=== PATIENT | female | born 1990 | race Caucasian/White ===

== ENCOUNTER 2018-01-20 14:00 | Emergency (ER) | payer BC ==
[2018-01-20] MEDS ORDERED: Alum Hydrox/Mag Hydrox/Simeth 30 ML, Lidocaine 2% 15 ML PO ONE ×2 (14:42)
[2018-01-20] MEDS ORDERED: Aluminum Hydroxide/Magnesium Hydroxide/Simethicone Susp 30 ML Cup ONE (14:50)
--- NOTE | 2018-01-20 14:52 | EDM.PDOC ---
ED HPI GENERAL MEDICAL PROBLEM - General Chief Complaint: Abdominal Pain Stated Complaint: ABDOMIANL PAIN Time Seen by Provider: 01/20/18 14:29 Source of Information: Reports: Patient History Limitations: Reports: No Limitations - History of Present Illness INITIAL COMMENTS - FREE TEXT/NARRATIVE: Patient is a 27-year-old female who is approximately 5 weeks who presents ED complaining of epigastric and right upper quadrant abdominal pain. States this came on at about 12:30 today after eating lunch. Patient had eaten turkey with guacamole. She's had similar episodes over the past 7 months. It is described as a sharp crampy sensation worsened with eating. Nothing specific decreases the discomfort. Pain does radiate into her back. Currently rated a 7 out of 10. This waxes and wanes with intensity. She's been 3 times total. She's had 2 miscarriages in the past. Last menstrual cycle was December 16. She is approximately 5 weeks . There is no abnormal vaginal bleeding. No abnormal vaginal discharge. Denies any constipation or diarrhea. She is not nauseated and has not had any episodes of emesis as we speak. She was seen by her PCP earlier today with lab work obtained. Just recently was on Keflex for her bladder infection. She denies any chest pain, shortness of breath, fever, diarrhea, increased flatulence, blood in her stool, dysuria, ingestion of bad or questionable food, recent sick exposures, or any additional complaints. middle upper abdomen/upper back Pain Score (Numeric/FACES): 7 - Related Data Allergies Allergy/AdvReac Type Severity Reaction Status Date / Time Sulfa (Sulfonamide Allergy Vomiting Verified 01/20/18 14:17 Antibiotics) Home Meds: Home Meds Acetaminophen/oxyCODONE [Percocet 325-5 MG] 1 each PO Q6HR PRN #12 tab 01/20/18 [Rx] Ascorbic Acid/Multivit-Min [Emergen-C 1,000 mg Packet] 1,000 mg PO DAILY [History] Cranberry 400 mg PO DAILY 01/20/18 [History] Docosahexanoic Acid [ Dha] 200 mg PO DAILY 01/20/18 [History] L.acidoph,Paracasei, B.lactis [Probiotic] 1 each PO DAILY 01/20/18 [History] Ondansetron [Zofran ODT] 4 mg PO Q6H PRN #12 tab.dis 01/20/18 [Rx] Past Medical History - Past Health History Medical/Surgical History: Denies Medical/Surgical History Other HEENT History: wisdom teeth 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 Denies: Black Stool, Bloody Stool, Constipation, Diarrhea, Decreased Appetite, Difficulty Swallowing , Distension, Flatus, Hematemesis, Hematochezia, Melena, Nausea, Vomiting : Reports: No Symptoms Musculoskeletal: Reports: Back Pain (midline thoracic back pain) Skin: Reports: No Symptoms ED EXAM, GI/ABD - Physical Exam Exam: See Below Exam Limited By: No Limitations General Appearance: Alert, WD/WN, Mild Distress Ears: Hearing Grossly Normal Nose: Normal Inspection Throat/Mouth: Normal Voice, No Airway Compromise Neck: Normal Inspection, Supple Respiratory/Chest: No Respiratory Distress, Lungs Clear, Normal Breath Sounds, No Accessory Muscle Use, Chest Non-Tender Cardiovascular: Normal Peripheral Pulses, Regular Rate, Rhythm, No Murmur GI/Abdominal Exam: Normal Bowel Sounds, Soft, No Organomegaly, No Distention, Tender (epigastric is the Point of maximal pain. RUQ pain present, mild in nature. ) Back Exam: Normal Inspection. No: CVA Tenderness (L), CVA Tenderness (R) Neurological: Alert, Oriented, CN II-XII Intact, Normal Cognition, No Motor/ Sensory Deficits Psychiatric: Normal Affect, Normal Mood Skin Exam: Warm, Dry, Intact, Normal Color, No Rash Course - Vital Signs Last Recorded V/S: Last Vital Signs Temp 97 F 01/20/18 14:12 Pulse 117 H 01/20/18 14:12 Resp 18 01/20/18 14:12 BP 136/90 01/20/18 14:12 Pulse Ox 100 01/20/18 14:12 - Orders/Labs/Meds Orders: Active Orders 24 hr Category Date Time Status Peripheral IV Care [RC] . DIRECTED Care 01/20/18 16:38 Active Peripheral IV Insertion Adult [OM.PC] Routine Oth 01/20/18 16:37 Ordered Labs: Laboratory Tests 01/20/18 Range/Units 15:08 C-Reactive Protein 0.2 (<1.0) mg/dL Lipase 123 (73-393) U/L HCG, Quant 480.0 mIU/mL Meds: Medications Discontinued Medications Generic Name Dose Route Start Last Admin Trade Name Freq PRN Reason Stop Dose Admin Al Hydroxide/Mg Hydroxide Confirm 01/20/18 14:50 01/20/18 14:55 Mag-Al Plus Administered 01/20/18 14:51 Not Given Dose 30 ml .ROUTE .STK-MED ONE Al Hydroxide/Mg Hydroxide 30 0 ml 01/20/18 14:42 01/20/18 14:54 ml/ Lidocaine HCl 15 ml PO 01/20/18 14:43 45 ml ONETIME ONE Administration Hydromorphone HCl 0.5 mg 01/20/18 16:37 01/20/18 17:02 Dilaudid IVPUSH 01/20/18 16:38 0.5 mg ONETIME ONE Administration Sodium Chloride 1,000 mls @ 150 mls/hr 01/20/18 16:45 01/20/18 17:01 Normal Saline IV 150 mls/hr ASDIRECTED KAYLEIGH Administration Ondansetron HCl 4 mg 01/20/18 16:37 01/20/18 17:01 Zofran IVPUSH 01/20/18 16:38 4 mg ONETIME ONE Administration Ranitidine HCl 150 mg 01/20/18 16:25 01/20/18 17:20 Zantac PO 01/20/18 16:26 Not Given ONETIME ONE Sodium Chloride 10 ml 01/20/18 16:37 01/20/18 17:01 Saline Flush FLUSH 10 ml ASDIRECTED PRN Administration Keep Vein Open - Re-Assessments/Exams Free Text/Narrative Re-Assessment/Exam: 01/20/18 14:40 Attempting to obtain medical records/lab results from [facility] obtained earlier today. In the meantime will order GI cocktail. Suspect this is gallbladder related thus if no relief IV will be obtained with administration of narcotic pain meds and IVF's. Patient last ate at 1230 with onset of pain shortly after. Will have to wait a few hrs prior to obtaining Ultrasound. She has a ultrasound scheduled for tomorrow morning at 9:30. 01/20/2018 Labs obtained at [facility] today included: CBC and C14. CBC was essentially normal. Chemistry panel was essentially normal as well. Will obtain lipase, UA, and hCG quantitative. 01/20/18 15:22 Reassessment, patient states all her discomfort is gone after the GI cocktail. Will await for labs to comeback. Patient will have ultrasound completed tomorrow as scheduled. She refuses to wait and have this completed today. CRP 0.2. Lipase 123. HCG quantitative 480. This consistent with between 1-4 weeks in gestation. Per nursing staff patient complaining of some epigastric discomfort similar to discomfort she was experiencing on admission. I will order Zantac 150 mg by mouth per verbal order. 163 I reassessed the patient. She is wishin to have the ultraound completed in the E.D. I will treat her pain with dilaudid 0.5mg IVp, zofran 4mg IVP, and NS 150mls/hr. Patient will have to wait approximately 2 more hours for ultrasound to be completed. Ultrasound has been ordered. Ultrasound impression: Small gallstone within the gallbladder. No gallbladder wall thickening or biliary duct dilatation. Possibly fatty infiltration within the liver. No additional abnormalities identified a right upper quadrant abdominal ultrasound. 01/20/18 181 Reassessment,Patient has no epigastric or right upper quadrant abdominal pain since being administered the Dilaudid IVP. Discussed with the patient most likely this is related to biliary colic. Will speak with general surgeon on-call. [address] Chatman sludge filtration operator General Surgeon. He will see the patient in the E.D. and discuss options. 01/20/[address] Chatman has spoken with the patient. Will attempt to hold off in performing and surgery until the 2nd trimester. Suggested pain management consisting of short course of narcotics with diet modification in hopes this will stop reoccurring symptoms. Patient agrees with plan. The patient remained hemodynamically stable while under my care in the E.D. I discussed the concerning symptoms for which to return to the E.D. with the patient/family. The patient/family verbalized understanding. All questions were answered. Departure - Departure Time of Disposition: 16:01 Disposition: Home, Self-Care 01 Condition: Good Clinical Impression: Biliary colic, Choledocholithiasis - Discharge Information Prescriptions: Acetaminophen/oxyCODONE [Percocet 325-5 MG] 1 each PO Q6HR PRN #12 tab PRN Reason: Pain (Severe 7-10) Ondansetron [Zofran ODT] 4 mg PO Q6H PRN #12 tab.dis PRN Reason: Nausea/Vomiting Instructions: Gastritis, Adult, [id number], Cholelithiasis, [id number], Pain Medicine Instructions, [id number] Referrals: PCP,None [Primary Care Provider] - Forms: ED Department Discharge Additional Instructions: As discussed will try to refrain from surgery if able until the 2nd trimester. Thus will utilize percocet 1 tab every 6 hrs for severe pain. Utilize zofran 1 tab wvery 6 hrs for nausea. Stick with the diet provided to reduce gallbladder attacks. If at any time you experience worsening pain, fever, chills, n/v, please return to the E.D. for reevaluation. Followup with PCP in the next 3 to 5 days for reevaluation as needed. - My Orders Last 24 Hours: My Active Orders 01/20/18 16:37 Peripheral IV Insertion Adult [OM.PC] Routine 01/20/18 16:38 Peripheral IV Care [RC] . DIRECTED - Assessment/Plan Last 24 Hours: My Active Orders 01/20/18 16:37 Peripheral IV Insertion Adult [OM.PC] Routine 01/20/18 16:38 Peripheral IV Care [RC] . DIRECTED
[2018-01-20] MEDS ORDERED: Ranitidine 15 MG/ML Syrup 10 ML UD Cup PO ONE (16:25)
[2018-01-20] MEDS ORDERED: Ondansetron 4 MG/2 ML SDV IVPUSH ONE (16:37)
[2018-01-20] MEDS ORDERED: Sodium Chloride 0.9% 10 ML Syringe FLUSH PRN (16:37)
[2018-01-20] MEDS ORDERED: HYDROmorphone 0.5 MG/0.5 ML SYRINGE IVPUSH ONE (16:37)
[2018-01-20] MEDS ORDERED: Sodium Chloride 0.9% 1,000 ML IV SCH (16:45)
--- NOTE | 2018-01-20 17:58 | US ---
Limited abdominal ultrasound: Multiple real-time images of the upper right abdomen were obtained. Comparison: Previous right upper quadrant abdominal ultrasound of 07/19/11 is available Small echogenic structure is noted within the gallbladder most likely due to a small gallstone. No gallbladder wall thickening or biliary duct dilatation is seen. Liver shows no focal parenchymal abnormality but appears to be slightly echogenic. Right kidney shows no hydronephrosis or mass has length of around 10.0 cm. Pancreas is poorly seen due to bowel gas. No abnormality is seen within the visualized portions of the pancreas. Impression: 1. Small gallstone within the gallbladder. No gallbladder wall thickening or biliary duct dilatation. 2. Possible fatty infiltration within the liver. 3. No additional abnormality is identified on right upper quadrant abdominal ultrasound. Diagnostic code #3
--- NOTE | 2018-01-20 19:43 | PCM.CONSN ---
- General Info Date of Service: 01/20/18 Admission Dx/Problem (Free Text): biliary colic Subjective Update: 27 yo female, currently 5 weeks EGA, presents with intermittent epigastric abdominal pain that radiates to her RIGHT side and wraps around her back. Pain episodes started a few days ago, each episode occurring a few hours after meals, and lasting 3-6 hours, resolving spontaneously. This episode lasted about 3 hours, occurring shortly after eating a [employer] sandwich with avocado. She came to the ER and received a GI cocktail with relief of her symptoms, but her symptoms returned prior to leaving the ER. She then received Dilaudid. Currently, she rates pain 0/10. Denies nausea/emesis. Denies diarrhea/constipation. No yellowing of eyes or skin. No acholic stools or tea-colored urine. No fevers/chills. - Patient Data Vitals - Most Recent: Last Vital Signs Temp 36.1 C 01/20/18 14:12 Pulse 117 H 01/20/18 14:12 Resp 18 01/20/18 14:12 BP 136/90 01/20/18 14:12 Pulse Ox 100 01/20/18 14:12 Weight - Most Recent: 83.007 kg Lab Results Last 24 Hours: Laboratory Results - last 24 hr 01/20/18 Range/Units 15:08 C-Reactive Protein 0.2 (<1.0) mg/dL Lipase 123 (73-393) U/L HCG, Quant 480.0 mIU/mL Med Orders - Current: Current Medications Sodium Chloride (Normal Saline) 1,000 mls @ 150 mls/hr IV ASDIRECTED KAYLEIGH Last Admin: 01/20/18 17:01 Dose: 150 mls/hr Sodium Chloride (Saline Flush) 10 ml FLUSH ASDIRECTED PRN PRN Reason: Keep Vein Open Last Admin: 01/20/18 17:01 Dose: 10 ml Discontinued Medications Al Hydroxide/Mg Hydroxide (Mag-Al Plus) Confirm Administered Dose 30 ml .ROUTE .STK-MED ONE Stop: 01/20/18 14:51 Last Admin: 01/20/18 14:55 Dose: Not Given Al Hydroxide/Mg Hydroxide 30 (ml/ Lidocaine HCl 15 ml) 0 ml PO ONETIME ONE Stop: 01/20/18 14:43 Last Admin: 01/20/18 14:54 Dose: 45 ml Hydromorphone HCl (Dilaudid) 0.5 mg IVPUSH ONETIME ONE Stop: 01/20/18 16:38 Last Admin: 01/20/18 17:02 Dose: 0.5 mg Ondansetron HCl (Zofran) 4 mg IVPUSH ONETIME ONE Stop: 01/20/18 16:38 Last Admin: 01/20/18 17:01 Dose: 4 mg Ranitidine HCl (Zantac) 150 mg PO ONETIME ONE Stop: 01/20/18 16:26 Last Admin: 01/20/18 17:20 Dose: Not Given - Exam General: Alert, Oriented, Cooperative HEENT: No: Scleral Icterus Neck: Supple. No: Lymphadenopathy Lungs: Clear to Auscultation, Normal Respiratory Effort Cardiovascular: Regular Rate, Regular Rhythm, No Murmurs GI/Abdominal Exam: Soft, Non-Tender, No Distention Extremities: Normal Inspection Skin: Warm, Dry, Intact Psy/Mental Status: Alert, Normal Affect, Normal Mood Consult PN Assessment/Plan Procedures: Procedures TRANSVAGINAL US OBSTETRIC (10/14/17)
--- NOTE | 2018-01-20 19:47 | PCM.CONS ---
H&P History of Present Illness - General Date of Service: 01/20/18 Admit Problem/Dx: biliary colic Source of Information: Patient History Limitations: Reports: No Limitations - History of Present Illness Initial Comments - Free Text/Narative: 27 yo female, currently 5 weeks EGA, presents with intermittent epigastric abdominal pain that radiates to her RIGHT side and wraps around her back. Pain episodes started a few days ago, each episode occurring a few hours after meals, and lasting 3-6 hours, resolving spontaneously. This episode lasted about 3 hours, occurring shortly after eating a [employer] sandwich with avocado. She came to the ER and received a GI cocktail with relief of her symptoms, but her symptoms returned prior to leaving the ER. She then received Dilaudid. Currently, she rates pain 0/10. Denies nausea/emesis. Denies diarrhea/constipation. No yellowing of eyes or skin. No acholic stools or tea-colored urine. No fevers/chills. middle upper abdomen/upper back Pain Score (Numeric/FACES): 7 - Related Data Allergies/Adverse Reactions: Allergies Allergy/AdvReac Type Severity Reaction Status Date / Time Sulfa (Sulfonamide Allergy Vomiting Verified 01/20/18 14:17 Antibiotics) Home Medications: Home Meds Acetaminophen/oxyCODONE [Percocet 325-5 MG] 1 each PO Q6HR PRN #12 tab 01/20/18 [Rx] Ascorbic Acid/Multivit-Min [Emergen-C 1,000 mg Packet] 1,000 mg PO DAILY [History] Cranberry 400 mg PO DAILY 01/20/18 [History] Docosahexanoic Acid [ Dha] 200 mg PO DAILY 01/20/18 [History] L.acidoph,Paracasei, B.lactis [Probiotic] 1 each PO DAILY 01/20/18 [History] Ondansetron [Zofran ODT] 4 mg PO Q6H PRN #12 tab.dis 01/20/18 [Rx] Past Medical History - Past Health History Medical/Surgical History: Denies Medical/Surgical History Other HEENT History: wisdom teeth 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 Exam - Exam Exam: See Below - Vital Signs Vital Signs: Last Vital Signs Temp 36.1 C 01/20/18 14:12 Pulse 117 H 01/20/18 14:12 Resp 18 01/20/18 14:12 BP 136/90 01/20/18 14:12 Pulse Ox 100 01/20/18 14:12 Weight: 83.007 kg - Exam General: Alert, Oriented HEENT: Conjunctiva Clear. No: Scleral Icterus Neck: Supple. No: Lymphadenopathy Lungs: Clear to Auscultation, Normal Respiratory Effort Cardiovascular: Regular Rate, Regular Rhythm, Normal S1, Normal S2. No: Systolic Murmur GI/Abdominal Exam: Soft, Non-Tender, No Distention Extremities: Normal Inspection Skin: Warm, Dry, Intact Neuro Extensive - Mental Status: Alert, Normal Mood/Affect, Normal Cognition, Memory Intact Psychiatric: Alert, Normal Affect, Normal Mood - Patient Data Lab Results Last 24 hrs: Laboratory Results - last 24 hr 01/20/18 Range/Units 15:08 C-Reactive Protein 0.2 (<1.0) mg/dL Lipase 123 (73-393) U/L HCG, Quant 480.0 mIU/mL Consult PN Assessment/Plan Procedures: Procedures TRANSVAGINAL US OBSTETRIC (10/14/17) (1) Biliary colic SNOMED Code(s): 39399395 Code(s): K80.50 - CALCULUS OF BILE DUCT W/O CHOLANGITIS OR CHOLECYST W/O OBST Current Visit: Yes Problem List Initiated/Reviewed/Updated: Yes Plan: 27 yo female, in her first trimester of (approx 5 weeks EGA), with biliary colic. - Patient educated on the diagnosis, discussed treatment options, and how her relates to treatment. - If symptoms can be controlled, will try to avoid surgery during the first trimester (period of organogenesis). Recommend avoiding surgery until the 2nd trimester, unless symptoms become progressively worse and/or inhibits her ability to take in calories. - If she develops acute cholecystitis, she may need urgent surgical intervention. - May try dietary modifications to avoid future attacks. - Pain medication can be used in the short-term. - Return precautions were given. - Patient safe for discharge home from the ER. Plan of care discussed with ER staff. Nilson Root M.D., F.A.C.S. General Surgery Pager: [phone] Requesting Provider: Lewis Hoover Date Consult Requested: 01/20/18 Reason for Consult: biliary colic in woman Patient History Reviewed: Yes Time Spent (in minutes): 40
== END 2018-01-20 20:02 | disposition home or self-care (01) ==
LOC: JD.ED 14:00
DX: O99.611 Diseases of the digestive system complicating pregnancy, first trimester (principal); K80.50 Calculus of bile duct without cholangitis or cholecystitis without obstruction; Z3A.01 Less than 8 weeks gestation of pregnancy; Z88.2 Allergy status to sulfonamides
CPT/HCPCS: 36415; 76705; 83690; 84702; 86140; 96361; 96374; 96375; 99285; A9270; J1170; J2405; J7040; J7050; 99284

== ENCOUNTER 2022-11-12 08:29 | Observation (INO) | payer BC ==
[2022-11-12] MEDS ORDERED: Ondansetron 4 MG/2 ML SDV IVPUSH PRN (09:06)
[2022-11-12] MEDS ORDERED: Acetaminophen/HYDROcodone 325-10 MG Tab PO PRN (09:20)
[2022-11-12] MEDS ORDERED: Ondansetron 4 MG Tab.DIS PO PRN (09:21)
[2022-11-12] MEDS ORDERED: Lactated Ringers 1,000 ML IV ONE ×2 (09:22→11:47)
[2022-11-12] MEDS ORDERED: Sodium Chloride 0.9% 10 ML Syringe FLUSH PRN (09:23)
[2022-11-12 11:30] LABS: APPEARANCE,URINE CLEAR (Clear); BILIRUBIN,URINE NEGATIVE (Negative); COLOR,URINE YELLOW (Yellow); GLUCOSE,URINE NEGATIVE (Negative); KETONES,URINE 2+ (Negative); LEUKOCYTE ESTERASE,URINE NEGATIVE (Negative); NITRITE,URINE POSITIVE (Negative); OCCULT BLOOD,URINE TRACE-INTACT (Negative); PROTEIN,URINE 1+ (Negative); UROBILINOGEN,URINE 0.2 (0.2-1.0)
[2022-11-12 11:40] LABS: BACTERIA,URINE FEW /hpf (FEW); EPITHELIAL CELLS,URINE 0-5 /hpf (0-5); MUCUS,URINE MODERATE /hpf (FEW)
[2022-11-12] MEDS ORDERED: cefTRIAXone 1 GM in Sodium Chloride 0.9% 100 ML IV ONE (12:00)
[2022-11-12 12:43] LABS: BASOPHILS ABSOLUTE AUTO 0.01 K/mm3 (0.01-0.08); BASOPHILS PERCENT AUTO 0.1 % (0.1-1.2); EOSINOPHILS ABSOLUTE AUTO 0.01 K/mm3 (0.04-0.36); EOSINOPHILS PERCENT AUTO 0.1 (0.7-5.8); HEMOGLOBIN 13.1 gm/dl (11.2-15.7); IMMATURE GRAN ABSOLUTE AUTO 0.09 K/mm3 (0.00-0.10); IMMATURE GRAN PERCENT AUTO 0.5 % (<=1.0); LYMPHOCYTES ABSOLUTE AUTO 0.44 K/mm3 (1.18-3.74); LYMPHOCYTES PERCENT AUTO 2.6 % (19.3-51.7); MEAN CORPUSCULAR HEMOGLOBIN 33.2 pg (25.6-32.2); MEAN CORPUSCULAR HGB CONC 33.6 g/dl (32.2-35.5); MEAN PLATELET VOLUME 9.6 fl (9.4-12.3); MONOCYTES ABSOLUTE AUTO 0.67 K/mm3 (0.24-0.36); MONOCYTES PERCENT AUTO 3.9 % (4.7-12.5); NEUTROPHILS ABSOLUTE AUTO 15.88 K/mm3 (1.56-6.13); NEUTROPHILS PERCENT AUTO 92.8 % (34.0-71.1); PLATELET COUNT,PLT 211 K/mm3 (182-369); RED BLOOD CELL COUNT 3.94 M/mm3 (3.98-5.22)
[2022-11-12 13:07] LABS: A/G RATIO 0.6 (1-2); ALBUMIN 2.3 g/dl (3.4-5.0); ANION GAP 19.3 (5-15); BILIRUBIN TOTAL 0.4 mg/dL (0.2-1.0); BUN/CREATININE RATIO 7.1 (14-18); CALCIUM 8.7 mg/dL (8.5-10.1); CREATININE 0.7 mg/dL (0.55-1.02); EST CRCL DRUG DOSING (CG) 99.63 mL/min; POTASSIUM,K 3.3 mEq/L (3.5-5.1); PROTEIN TOTAL,TP 6.3 g/dl (6.4-8.2)
[2022-11-12 13:16] LABS: SLIDE REVIEW ABNORMAL SMEAR
== END 2022-11-12 14:57 | disposition home or self-care (01) ==
LOC: JD.OB 08:29
PROVIDERS: ADMIT Family Medicine; ATTEND Family Medicine
DX: O23.03 Infections of kidney in pregnancy, third trimester (principal); Z88.2 Allergy status to sulfonamides; Z79.82 Long term (current) use of aspirin; Z79.899 Other long term (current) drug therapy; Z3A.39 39 weeks gestation of pregnancy
CPT/HCPCS: 36415; 59025; 74176; 80053; 81001; 85025; 87086; 96360; 96361; 96365; A9270; J0696; J3490; J7120

== ENCOUNTER 2025-04-25 06:50 | Day surgery (SDC) | payer BC ==
[~2025-04-25 06:50] MED LIST: Ketamine HCL/NACL, ISO-OSM 50 MG/5 ML Syringe ONE; Sodium Chloride 0.9% 10 ML Syringe FLUSH PRN; Sodium Chloride 0.9% 10 ML Syringe FLUSH SCH; propofoL 500 MG/50 ML 50 ML ONE
[2025-04-25] MEDS: Lactated Ringers 1,000 ML IV SCH (07:20)
[2025-04-25 07:26] LABS: BASOPHILS ABSOLUTE AUTO 0.1 K/mm3 (0.0-0.2); BASOPHILS PERCENT AUTO 1.0 % (0.0-1.0); EOSINOPHILS ABSOLUTE AUTO 0.2 K/mm3 (0.0-0.4); EOSINOPHILS PERCENT AUTO 2.7 % (0.0-6.0); IMMATURE GRAN ABSOLUTE AUTO 0.02 K/mm3 (0.00-0.05); IMMATURE GRAN PERCENT AUTO 0.3 % (0.0-0.4); LYMPHOCYTES ABSOLUTE AUTO 3.1 K/mm3 (1.0-4.8); LYMPHOCYTES PERCENT AUTO 52.9 % (24.0-44.0); MEAN PLATELET VOLUME 8.3 fl (9.4-12.3); MONOCYTES ABSOLUTE AUTO 0.4 K/mm3 (0.0-0.8); MONOCYTES PERCENT AUTO 7.4 % (0.0-8.0); NEUTROPHILS ABSOLUTE AUTO 2.1 K/mm3 (1.8-7.7); NEUTROPHILS PERCENT AUTO 35.7 % (41.0-71.0); NRBC ABSOLUTE 0.00 (0.00-0.02); NRBC PERCENT 0.0 % (0.0-0.2); PLATELET COUNT,PLT 241 K/mm3 (150-400); RED BLOOD CELL COUNT 4.18 M/mm3 (4.10-5.30); WHITE BLOOD CELL COUNT,WBC 5.94 K/mm3 (3.9-11.3)
[2025-04-25] MEDS: Ketorolac 30 MG/ML SDV IVPUSH PRN (08:55)
== END 2025-04-25 11:10 | disposition home or self-care (01) ==
LOC: JD.SDS 06:50
PROVIDERS: ATTEND Obstetrics & Gynecology
DX: N85.8 Other specified noninflammatory disorders of uterus (principal); J45.909 Unspecified asthma, uncomplicated; Z79.899 Other long term (current) drug therapy
CPT/HCPCS: 36415; 58558; 81025; 85025; 87070; 87075; 87205; A9270; J0690; J1885; J2704; J7120; 00952; J3490